=== PATIENT | male | born 1955 | race Caucasian/White ===

== ENCOUNTER 2016-06-18 06:25 | Day surgery (SDC) | payer BC, OTHER ==
[2016-06-14 12:11] VITALS: BMI 38.4
[2016-06-18] MEDS ORDERED: SODIUM CHLORIDE 0.9% 1,000 ML in EMPTY BAG 1 BAG IV ONE (06:48)
[2016-06-18] MEDS ORDERED: ALPRAZolam 0.5 MG TAB PO PRN (06:48)
[2016-06-18] MEDS ORDERED: NITROGLYCERIN SL TABS 0.4 MG TAB SUBLINGUAL PRN (06:48)
[2016-06-18] MEDS ORDERED: ALPRAZolam 0.25 MG TAB PO PRN (06:48)
[2016-06-18] MEDS ORDERED: ATORVASTATIN 80 MG TAB PO STA (06:48)
[2016-06-18] MEDS ORDERED: ASPIRIN 325 MG TAB PO STA (06:48)
[2016-06-18 07:06] VITALS: RESP 18
[2016-06-18] MEDS ORDERED: diphenhydrAMINE 50 MG/ML 1 ML VIAL IVP ONE (07:42)
[2016-06-18] MEDS ORDERED: fentaNYL (PF) 50 MCG/ML 2 ML AMP IV ONE (07:44)
[2016-06-18] MEDS ORDERED: LIDOCAINE 2% INJ 20 MG/ML SQ ONE (07:46)
[2016-06-18] MEDS ORDERED: VERAPAMIL SYRINGE (5 MG/10 ML) IVP ONE (07:50)
[2016-06-18] MEDS ORDERED: HEPARIN SODIUM 1,000 UNIT/ML VIAL IV ONE (07:52)
[2016-06-18] MEDS ORDERED: IOHEXOL 350 MG/ML 100 ML BOTTLE INJ ONE (08:01)
[2016-06-18] MEDS ORDERED: RX INFO: IV CONTRAST WAS GIVEN 1 EACH MISC MISCELLANE PRN (08:08)
[2016-06-18] MEDS ORDERED: SODIUM CHLORIDE 0.9% 1,000 ML IV SCH (08:15)
--- NOTE | 2016-06-18 09:11 | CC ---
DATE OF SERVICE: Mr. Harley is a 61-year-old male with known history of hypertension and hyperlipidemia, who recently has been complaining of episodes of chest discomfort, underwent a stress echocardiogram, revealed a fixed inferobasal wall hypokinesis. In view of that, recommendation was made regarding cardiac catheterization. The procedure as well as risks and complications were discussed with the patient who is in full understanding and agreement. PROCEDURE: Patient was brought to the dock or pier laborer in a fasting semi-sedated state after receiving fentanyl and Benadryl. He was draped and prepped in conventional fashion. Using Xylocaine anesthesia and Seldinger technique, a 6 Niuean sheath was introduced in the right radial artery. Selective right coronary angiography was performed using 5 Niuean, 3-1/2 Bend, right and left Dallin catheter. Multiple views of the coronary arteries including hemiaxial views were obtained. Following that, a 5 Niuean tight Pigtail catheter was introduced into the left ventricle and a 30 degree HUIZAR view of the left ventricle was obtained. Following that, catheter and sheath were removed. Hemostasis was obtained with deployment of a TR band. There were no immediate complication. Patient is returned to his room with in stable condition. Of note, the patient received 5000 units of intravenous heparin as well as intra-arterial verapamil. FINDINGS: LEFT MAIN: This is a large-size vessel bifurcating into the left circumflex, left anterior descending artery. Left main coronary artery has a 10% to 20% plaque proximally. The rest of the vessel has no high-grade stenosis. LEFT ANTERIOR DESCENDING ARTERY: This is a large-size vessel reaching toward the apex giving rise to a large diagonal branch, distal to that the LAD and started to taper down. It does not wrap around the apex. The left anterior descending artery has no evidence of high-grade stenosis. LEFT CIRCUMFLEX: This is a codominant vessel, giving rise to 2 obtuse marginal branches, distally giving rise to a left PLV. The left circumflex as well as its branches have no evidence of obstructive lung disease. RIGHT CORONARY ARTERY: This is a large dominant vessel, bifurcating into PDA. The PLV is small. The right coronary artery PDA reaches toward the inferoapical wall. The mid segment of the RCA has a 20% to 30% plaque. The rest of the vessel has no high-grade stenosis. LEFT VENTRICULOGRAM: Left ventriculogram is performed in 30 degree HUIZAR view and revealed normal left ventricular size and systolic function. Ejection fraction is 60%. There was no significant mitral regurgitation. HEMODYNAMICS: There was no gradient across the aortic valve. The left ventricular end-diastolic was 20 mmHg. CONCLUSION: 1. Mild disease involving the left main, and the right coronary artery. 2. Normal left ventricular size and systolic function. RECOMMENDATION: In view of the finding anatomy, recommend to continue medical therapy with aggressive risk modifications being initiated. Those findings and recommendations were discussed with the patient and his family who are in full understanding and agreement. NAEL
--- NOTE | 2016-06-18 09:14 | LTR ---
June 18, 2016 RE: Kimo Harley Dear Dr. Puri; I had the pleasure to perform cardiac catheterization on Mr. Redman at [facility] on June 18 and a full copy of the procedure note will be forwarded to you. In brief, he was found to have mild intimal disease with no high-grade stenosis and based on this finding, I have recommended continue medical therapy with aggressive risk modifications being initiated and thank you again for allowing me to participate in this patient's care. Please feel free to call for any questions. Sincerely yours, ANSHU SHERWOOD MD
[2016-06-18 11:37] VITALS: PULSE 58; TEMP 98.4
[2016-06-18 12:43] VITALS: BP 158/79
[2016-06-19] MEDS ORDERED: ASPIRIN 81 MG CHEW PO SCH (09:00)
[2016-06-19] MEDS ORDERED: BISOPROLOL-HCTZ 10-6.25 MG 1 EACH TAB PO SCH (09:00)
[2016-06-19] MEDS ORDERED: ATORVASTATIN 10 MG TAB PO SCH (09:00)
[2016-06-19] MEDS ORDERED: ALLOPURINOL 300 MG TAB PO SCH (09:00)
== END 2016-06-18 12:55 | disposition home or self-care (01) ==
LOC: CATHCVL 06:25
PROVIDERS: ATTEND Internal Medicine Interventional Cardiology
DX: I25.10 Atherosclerotic heart disease of native coronary artery without angina pectoris (principal); R94.39 Abnormal result of other cardiovascular function study; R07.9 Chest pain, unspecified; I10 Essential (primary) hypertension; E78.2 Mixed hyperlipidemia; E78.00 Pure hypercholesterolemia, unspecified; Z79.82 Long term (current) use of aspirin; Z79.899 Other long term (current) drug therapy; Z82.49 Family history of ischemic heart disease and other diseases of the circulatory system
CPT/HCPCS: 93458; C1894; C1769; J2001; J1200; Q9967; J3010; J1644

== ENCOUNTER → 2017-03-05 | Outpatient (CLI) | payer BC ==
--- NOTE | 2017-03-05 23:18 | CONS ---
CONSULTATION Consultation note for sleep apnea. This patient is 62, morbidly obese, with classical manifestations of PAULINE, knowing that he has snoring, witnessed apneas and chronic hypersomnia and sleepiness. After his in December of 2016, the patient is going back to work and is commuting to [place] every day. He is working his afternoon shift. He goes to work at around 8:00 p.m. and he gets out of work at around 3:30 a.m. in the morning. He arrives home at 4:00 a.m., goes to bed around 4:30 and he wakes up at irregular intervals and ultimately gets out of bed around 9:00. He is very tired and sleepy during the day. At times while driving back home, he dozes off and he sleeps behind the wheel. On multiple occasions, he has pulled to the side of the road to take a nap and he stopped at rest areas for refreshment. He is morbidly obese. He has gained weight over the years and in the in the order of 20 pounds over the past 1 year. He has some restlessness in lower extremities. He is very much tired. The patient tells me that he was diagnosed having obstructive sleep apnea more than 15 years ago. He was briefly treated with CPAP and then subsequently quit the treatment. He was doing well for many years until recently. He is coming in for re-evaluation. PAST MEDICAL HISTORY: 1. PAULINE. 2. Obesity. 3. Hypertension. 4. Hyperlipidemia. 5. Hyperuricemia. SURGICAL HISTORY: Vasectomy. DRUG ALLERGIES: None. MEDICATIONS: Include: 1. Bisoprolol. 2. Hydrochlorothiazide. 3. Zocor and. 4. Allopurinol. SOCIAL HISTORY: Nonsmoker. No history of alcohol. No history of IV drugs. FAMILY HISTORY: Negative for sleep apnea. REVIEW OF SYSTEMS: A 12-point review of system was done. Positive findings are all mentioned above in the history of present illness. Of significance is the absence of any sleepwalking or sleep talking. No anxiety or panic attacks. No nocturnal heartburn. No nocturia. No chest pain. No claustrophobia. No sexual dysfunction. No depression. No difficulty with memory and concentration. He is considered to be an increased risk of falling asleep while driving. No sleep paralysis. No hallucinations. No cataplexy. No head trauma. No seizure activity. BP is 139/76, pulse 70, respiratory rate 16, temperature 97.9, saturation 97% on room air. Neck size 18 inches. BMI is 40.3, weight is 229. Height is 5 feet 3 inches. GENERAL APPEARANCE: Obese, calm, comfortable. HEENT: Short neck. Crowding of posterior pharynx, Mallampati class IV. There is no goiter or neck mass. LUNGS: Clear to auscultation. HEART: Sounds are regular rate and rhythm. Normal S1, S2. No S3, S4. No murmurs. ABDOMEN: Soft, nontender. No organomegaly. EXTREMITIES: No edema. No cyanosis or clubbing. NEURO: A and O x3. There is no focal neurological deficit. SKIN: Negative for ulcers, wounds or cellulitis. SKELETAL: Negative for arthritis or joint swelling. IMPRESSION: 1. Severe symptomatic obstructive sleep apnea. The patient is coming in for evaluation. The patient is somnolent and sleepy. He carries an [place] score of 15. He has an increased risk of falling asleep while driving. Suspect severe obstructive sleep apnea. 2. Obesity, body mass index of 40.3. 3. Hypersomnia. [place] score of 15. 4. Hypertension. 5. Hyperlipidemia. 6. Hyperuricemia. PLAN: 1. Immediate split night study. Will need to re-establish the patient's diagnosis of sleep apnea and treat him accordingly. 2. No driving especially until his obstructive sleep apnea is treated. 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 Strongly advised against driving. Alternatively, he may need to make stops and/or let somebody drive for him on his way back home and car pooling was suggested with other coworkers. 3. Weight loss. 4. Implement good sleep hygiene measures. 5. Will continue to follow and immediate treatment after diagnosis will be established. MMODL / IJN: [id number] /
== END | disposition home or self-care (01) ==
LOC: SLEEP 16:54
PROVIDERS: ATTEND Internal Medicine Critical Care Medicine
DX: G47.33 Obstructive sleep apnea (adult) (pediatric) (principal); E66.9 Obesity, unspecified; G47.10 Hypersomnia, unspecified; I10 Essential (primary) hypertension; E78.5 Hyperlipidemia, unspecified; E79.0 Hyperuricemia without signs of inflammatory arthritis and tophaceous disease; Z68.41 Body mass index [BMI] 40.0-44.9, adult
CPT/HCPCS: 99211

== ENCOUNTER → 2017-07-23 | Outpatient (CLI) | payer BC ==
--- NOTE | 2017-07-23 17:06 | PN ---
PROGRESS NOTE 62-year-old male patient coming in for a compliancy check regarding obstructive sleep apnea. The patient has classical manifestations of PAULINE. The patient underwent a split night study. He was found to have severe PAULINE with an AHI of 70 and subsequently was given an automatic CPAP unit with a minimum pressure of 10 and maximum pressure of 20. Today he is coming in for followup. He is looking very well. His sleep quality is improved and is waking up much more alert and awake during the day. He works as an residential electrician and he is able to function without having to fall asleep or become drowsy or sleepy. His weight is down to 220 and he has lost 9 pounds since his last evaluation approximately 4 months ago. I checked his compliance data and based on the compliance data the CPAP use has been an average of 7.4 hours per night. His CPAP use for more than 4 hours is 29/30. His average pressure is at 17 cm of water. He is using a AirFit P10 nose mask and his leak factor is 44 cm/minute. His AHI while on treatment is down to 8. He has no complaint despite his ongoing leak. He is comfortable and does not want to switch the mask interface for now. He is committed to losing weight and he is benefitting from the treatment. His current vital signs, his BP is 144/68, pulse 76, respirations 16, temperature 99.3, weight is 220, and saturation 94% on room air. General appearance: Calm comfortable in no acute distress. Head is atraumatic, normocephalic. Neck is short and supple. There is crowding of posterior pharynx. There is no goiter or neck masses. LUNGS: Diminished breath sounds. Otherwise clear. Heart sounds regular rate and rhythm. Normal S1, S2. No S3, S4. No murmurs. Abdomen is soft, nontender. No organomegaly. EXTREMITIES: No edema. No cyanosis or clubbing. NEUROLOGIC: The patient is alert and oriented x3. There is no focal neurological deficits. Psychiatrically: The patient has appropriate mood and affect. Skin: There is no wounds or ulceration. IMPRESSION: Symptomatic obstructive sleep apnea severe AHI of 70, the patient undergoing successful CPAP therapy. The patient is on auto Pap with a minimum pressure of 10 maximum of 20 and treatment has been successful. PLAN: 1. Continues oral CPAP therapy. 2. Continue using AirFit P10 nose mask. 3. Patient is committed to lose weight. He has lost around 9 pounds since last evaluation. 4. We will continue to follow and make further recommendations. 5. See me back in a year's time or earlier if needed. For now, his treatment is successful. YAKOV / SARAY: [id number] /
== END | disposition home or self-care (01) ==
LOC: SLEEP 15:47
PROVIDERS: ATTEND Internal Medicine Critical Care Medicine
DX: G47.33 Obstructive sleep apnea (adult) (pediatric) (principal); Z99.89 Dependence on other enabling machines and devices